=== PATIENT | female | born 1955 | race Caucasian/White ===

== ENCOUNTER 2018-11-24 08:04 | Day surgery (SDC) | payer OTHER ==
[2018-11-22 10:01] VITALS: BMI 37.1
[2018-11-24] MEDS ORDERED: LIDOCAINE HCL/PF 2% SDV 5ML VIAL ONE (08:27)
[2018-11-24] MEDS ORDERED: PROPOFOL 20 ML ONE ×2 (08:28)
[2018-11-24 10:38] VITALS: TEMP 98
[2018-11-24 10:52] VITALS: BP 144/90; PULSE 65
== END 2018-11-24 10:45 | disposition home or self-care (01) ==
LOC: FASU-ENDO 08:04
PROVIDERS: ATTEND Internal Medicine Gastroenterology
PROC: 0DJD8ZZ Inspection of Lower Intestinal Tract, Via Natural or Artificial Opening Endoscopic (ICD-10-PCS; principal; 2018-11-24 09:34)
DX: Z12.11 Encounter for screening for malignant neoplasm of colon (principal)